=== PATIENT | male | born 1955 | race Caucasian/White ===

== ENCOUNTER 2023-05-27 07:14 | Outpatient (RCR) | payer MEDICARE, SELFPAY | END 2023-05-27 23:59 | disposition home or self-care (01) | LOC: RPT 07:14 | PROVIDERS: ATTENDING PHYSICIAN Orthopaedic Surgery; FAMILY PHYSICIAN Family Medicine | DX: M51.16 Intervertebral disc disorders with radiculopathy, lumbar region (principal); Z73.6 Limitation of activities due to disability; M79.605 Pain in left leg | CPT/HCPCS: 97110; 97162 ==

== ENCOUNTER 2023-06-25 08:59 | Outpatient (RCR) | payer MEDICARE, SELFPAY | END 2023-06-25 10:12 | disposition home or self-care (01) | LOC: RPT 08:59 | PROVIDERS: ATTENDING PHYSICIAN Orthopaedic Surgery; FAMILY PHYSICIAN Family Medicine | DX: M51.16 Intervertebral disc disorders with radiculopathy, lumbar region (principal); Z73.6 Limitation of activities due to disability | CPT/HCPCS: 97110 ==

== ENCOUNTER 2023-07-08 06:38 | Day surgery (SDC) | payer MEDICARE, SELFPAY ==
[2023-07-08 10:40] VITALS: BMI 24.2
[2023-07-08 10:50] VITALS: BP 159/88
[2023-07-08 11:06] VITALS: BMI 24.2
[2023-07-08 13:40] VITALS: BP 110/91
[2023-07-08 13:55] VITALS: BP 148/105
[2023-07-08 14:10] VITALS: BP 127/86
== END 2023-07-08 14:25 | disposition home or self-care (01) ==
LOC: GI 06:38
PROVIDERS: ATTENDING PHYSICIAN Internal Medicine Gastroenterology
DX: Z12.11 Encounter for screening for malignant neoplasm of colon (principal); K64.0 First degree hemorrhoids; K31.A0 Gastric intestinal metaplasia, unspecified; K31.7 Polyp of stomach and duodenum; K31.89 Other diseases of stomach and duodenum; Z86.010 Personal history of colon polyps; Z13.810 Encounter for screening for upper gastrointestinal disorder; Z98.890 Other specified postprocedural states
CPT/HCPCS: 45378; 43239; 88305

== ENCOUNTER → 2024-10-19 15:49 | Outpatient (REF) | payer MEDICARE, SELFPAY | LOC: HWRCS 15:49 | PROVIDERS: ATTENDING PHYSICIAN Nurse Practitioner; FAMILY PHYSICIAN Family Medicine | DX: R00.1 Bradycardia, unspecified (principal); R00.2 Palpitations; R06.09 Other forms of dyspnea; R07.89 Other chest pain | CPT/HCPCS: 93306 ==

== ENCOUNTER → 2024-10-22 10:32 | Outpatient (REF) | payer MEDICARE, SELFPAY | LOC: RCS 10:32 | PROVIDERS: ATTENDING PHYSICIAN Nurse Practitioner; FAMILY PHYSICIAN Family Medicine | DX: R06.09 Other forms of dyspnea (principal); R07.89 Other chest pain; R00.1 Bradycardia, unspecified; R00.2 Palpitations | CPT/HCPCS: 93017 ==

== ENCOUNTER → 2024-11-10 12:36 | Outpatient (REF) | payer MEDICARE, SELFPAY | LOC: HWRCS 12:36 | PROVIDERS: ATTENDING PHYSICIAN Nurse Practitioner; FAMILY PHYSICIAN Family Medicine | DX: R06.09 Other forms of dyspnea (principal); R07.89 Other chest pain | CPT/HCPCS: 78452; 93017; A9500; J2785 ==

== ENCOUNTER 2024-12-07 07:57 | Day surgery (SDC) | payer MEDICARE, SELFPAY ==
[2024-12-07] VITALS (14 sets, daily range): BP systolic 122–151; BP diastolic 63–130
[2024-12-07] MEDS: NSS 243 ML IV (08:35)
[2024-12-07 09:33] LABS: ACT-LR - POC 310 Seconds (116-155)
[2024-12-07 09:58] LABS: ACT-LR - POC 363 Seconds (116-155)
--- NOTE | 2024-12-07 10:34 | ITS.CL.PN ---
Engine Dispatcher - Procedure Note
Procedure
Procedure Note:
CARDIAC CATHETERIZATION REPORT
Date of Procedure: 12/07/2024
Referring: Dr. Aron Carter MD
Indication: Anginal chest pain and positive cardiac stress test despite maximally tolerated antianginal medication
PROCEDURE(S)
1. left heart catheterization
2. coronary angiography
3. IVUS LAD
4. PCI with ENEDINA to LAD
ACCESS: 6F right radial artery (closure: radial band)
CATHETERS
1. 6F JR4
2. 6F JL4
3. 6F EBU3.5 guide
MODERATE SEDATION: 45 minutes of moderate sedation was utilized. An independent medical device sales representative was present to assist with and help manage the patient's level of consciousness and physiologic status.
HEMODYNAMIC DATA
LV 129/3 (EDP 7) mmHg
AO 127/70 (mean 93) mmHg
CORONARY ANGIOGRAPHY
Dominance: Right
LM: large, normal
LAD: large vessel giving rise to a single very large diagonal with the continuation of the LAD suppling septals and becoming a diminutive vessel before reaching the apex. There is a focal 90% stenosis in the LAD ending just at the diagonal
bifurcation and otherwise trivial luminal irregularities only.
Ramus: large caliber vessel with trivial luminal irregularities only.
LCx: large vessel giving rise to a single branching marginal. There are trivial luminal irregularities only.
RCA: Large vessel giving rise to a large RPDA, large RPL1, and small RPL2. There are trivial luminal irregularities only.
PCI with ENEDINA to LAD
Additional heparin was administered to achieve ACT greater than 300. The left main was engaged with an EBU 3.5 guide catheter and a Runthrough coronary wire placed in the distal LAD. Initial lesion preparation was performed with a 2.0 mm
semicompliant balloon with full expansion. IVUS was performed demonstrating a 4.0 mm reference vessel diameter up with minimal calcification at the lesion. A 3.5 x 18 mm Kevin Randall drug-eluting stent was delivered and deployed at nominal pressure
followed by post dilation with a 4.0 mm NC balloon to 18 ashwin. Repeat IVUS demonstrated full stent expansion and apposition with no edge dissections. Final angiographic result was outstanding. The wire and guide were removed and a TR band placed. The
patient was loaded with 600 mg of Plavix.
RADIATION: dose 568 mGy; DAP 43 Gy*cm2; fluoroscopy time 8.1 min
CONCLUSIONS
1. Left heart cath with normal LV filling pressure and no aortic stenosis.
2. Coronary angiography with single vessel coronary artery disease as described with 90% prox LAD stenosis.
3. Successful IVUS-guided PCI to prox LAD with DESx1 (3.5x18 Kevin Randall post-dilated to high pressure with a 4.0 mm NC balloon).
RECOMMENDATIONS
1. Dual antiplatelet therapy with aspirin and Plavix for 6 months followed by indefinite aspirin monotherapy
2. Aggressive secondary prevention of coronary artery disease with goal LDL less than 55
Copy to: Dr. Aron Carter MD (forestry faculty member); Dr. Danilo Vargas DO (PCP)
Signed: Demetrius Gomez MD, PhD
[2024-12-07] MEDS: NSS 1000 IV (10:46)
--- NOTE | 2024-12-07 13:54 | W.PN.UPDATE ---
Update Note
Progress Note Update
Pt seen post LAD PCI w/1 ENEDINA. Left radial site without ht/bleeding. OOB ambulating. Post EKG SB 45, which is baseline, no acute changes. Pt understands importance of uninterrupted DAPT w/asa, plavix. Will continue other meds as before. Cardiac rehab
consulted. Followup at [facility] as scheduled. Home today if cath site/tele remain stable.
== END 2024-12-07 15:40 | disposition home or self-care (01) ==
LOC: CATH 07:57
PROVIDERS: ATTENDING PHYSICIAN Student in an Organized Health Care Education/Training Program; FAMILY PHYSICIAN Family Medicine
DX: I25.119 Atherosclerotic heart disease of native coronary artery with unspecified angina pectoris (principal); Z79.02 Long term (current) use of antithrombotics/antiplatelets; Z79.82 Long term (current) use of aspirin; I10 Essential (primary) hypertension
CPT/HCPCS: 92978; 99152; 99153; 85347; 93005; 93458; C1725; C1753; C1874; C1894; C9600; Q9967

== ENCOUNTER 2024-12-24 16:38 | Outpatient (RCR) | payer MEDICARE, SELFPAY | END 2024-12-24 23:59 | disposition home or self-care (01) | LOC: CRHB 16:38 | PROVIDERS: ATTENDING PHYSICIAN Internal Medicine Cardiovascular Disease; FAMILY PHYSICIAN Family Medicine | DX: I25.10 Atherosclerotic heart disease of native coronary artery without angina pectoris (principal); Z95.5 Presence of coronary angioplasty implant and graft | CPT/HCPCS: G0422; G0423 ==

== ENCOUNTER 2025-01-15 09:19 | Emergency (ER) | payer MEDICARE, SELFPAY ==
[2025-01-15 09:20] VITALS: BP 158/93
[2025-01-15 10:01] VITALS: BMI 25.6
[2025-01-15 10:23] LABS: Hematocrit 48.5 % (39.0-52.0); Hemoglobin 16.4 g/dL (13.0-18.0); Mean Corp Hgb Conc. 33.8 g/dL (33.0-37.0); Mean Corpuscular Volume 92.9 fL (80.0-94.0); Nucleated Red Blood Cells % 0 % (-); Platelet Count 186 10^3/uL (130-400); Red Cell Dist. Width 12.8 % (11.5-14.5)
[2025-01-15 10:29] LABS: INR 0.96; PT 13.1 Sec (11.4-14.6)
[2025-01-15 10:30] LABS: APTT 26.6 Sec (23.4-35.0)
[2025-01-15 10:37] LABS: ALT (SGPT) 45 U/L (0-50); AST (SGOT) 38 U/L (17-59); Albumin 4.2 g/dl (3.5-5.0); Alkaline Phosphatase 82 U/L (38-126); Blood Urea Nitrogen 23 mg/dl (9-20); Calcium 9.8 mg/dl (8.4-10.2); Carbon Dioxide 31 mmol/L (22-30); Chloride 106 mmol/L (98-107); Estimated Creatinine Clearance 71 ml/min; Glucose 106 mg/dl (70-99); Lipase 132 U/L (23-300); Potassium 4.5 mmol/L (3.5-5.1); Sodium 140 mmol/L (135-145); Total Protein 6.6 g/dl (6.3-8.2); eGFR > 60.00
[2025-01-15 10:56] VITALS: BP 123/73
[2025-01-15 11:00] VITALS: BP 136/75
[2025-01-15 13:02] VITALS: BP 128/57
--- NOTE | 2025-01-15 13:07 | ED.GENMED ---
History of Present Illness
General
Chief Complaint: Abnormal Lab Value
Time Seen by Provider: 01/15/25 09:34
History of Present Illness
History of Present Illness:
see MDM
Past History
Past History
ED Past Medical History: Cancer (prostate), HTN and Other (kidney stones, diverticulosis seen on colonoscopy)
ED Past Surgical History: Appendectomy, Cardiac (A stress echo test was done due to his risk factors and was normal.), Tonsilectomy, Urological (prostatectomy) and Other (Colonoscopy for colon cancer screening)
Social History
Tobacco: Non-smoker
Alcohol: Occasional
Personal:
Living: with family (significant other)
Employment: Employed
Phy Exam
Physical Exam
Physical Exam:
see MDM
Course
Orders/Labs/Results
Orders:
Orders
01/15/25 09:50
CT Abd/Pel (IV only)-DH only Urgent
Comment: tender RLQ
Reason For Exam: RUQ bruising, elevated LFTs/lipase per outpateitn
Complete Blood Count/With Diff Urgent
Comprehensive Metabolic Panel Urgent
Lipase Urgent
PTT Urgent
Prothrombin Time Urgent
Abnormal Lab Results
01/15/25
09:50
MCH 31.4 H pg
(27.0-31.0)
Absolute Monos (auto) 0.9 H 10^3/uL
(0.1-0.6)
Monocytes % 13.6 H %
(1.7-9.3)
Carbon Dioxide 31 H mmol/L
(22-30)
BUN 23 H mg/dl
(9-20)
Glucose 106 H mg/dl
(70-99)
Total Bilirubin 2.1 H mg/dl
(0.2-1.3)
01/15/25 09:50
01/15/25 09:50
Vital Signs
Initial and Last Documented VS:
Initial Vital Signs
Temp Pulse Resp BP Pulse Ox
36.6 C 49 16 158/93 100
01/15/25 09:20 01/15/25 09:20 01/15/25 09:20 01/15/25 09:20 01/15/25 09:20
Last Documented Vital Signs
Temp Pulse Resp BP Pulse Ox
36.6 C 49 16 128/57 98
01/15/25 09:20 01/15/25 09:20 01/15/25 09:20 01/15/25 13:02 01/15/25 13:09
MDM/Problems Addressed
Differential Diagnosis Includes:
see MDM
MDM/Problems Addressed:
Note:
CHIEF COMPLAINT(S)
Elevated liver enzymes and spontaneous bruising.
HISTORY OF PRESENT ILLNESS
The patient is a 70-year-old male with a history of cad with stenting 11/2024, here for concern for abnormal blood work. He presents with concerns of spontaneous bruising and elevated liver enzymes identified in recent blood tests conducted by his
primary care provider. The patient was noted to have elevated alanine aminotransferase (ALT) of 70s and aspartate aminotransferase (AST) of 50s last week. There is also a new onset of slight jabs of abdominal pain in the right upper quadrant
beginning approximately one week ago, described as 'not significant,' without associated vomiting, nausea, fever, or chills. Patient is on aspirin and Plavix and says he noticed a bruise in his right upper abdomen about 10 days ago. Not prompted
the initial evaluation with labs from his site superintendent who noticed that the LFTs were minimally bumped. Patient then saw his family doctor who sent him for labs 2 days ago and he got a phone call today saying that something was concerning for
pancreatitis. The patient denies any history of pancreatitis but acknowledges lower back pain, which he attributes to a muscular cause. He takes Eliquis and Coumadin, among others not specified, for his cardiac condition. Recent labs suggested the
possibility of pancreatitis, potentially related to the blood thinning medication. As a precautionary measure, a computed tomography (CT) scan has been recommended.
SOCIAL HISTORY
The patient reports no history of smoking. There was no mention of alcohol or substance use.
MEDICATIONS
- Blood thinners: Eliquis, Coumadin
PHYSICAL EXAM
GENERAL: Alert , in no apparent distress
EYE: pupils equal and reactive
NECK: Supple
ENT: o/p clr, mmm.
CARDIAC: Regular rate and rhythm .
LUNGS: Clear breath sounds bilaterally, no acute respiratory distress, no wheezes/rales/rhonchi
ABDOMEN: Soft, right sided upper abdomen bruising that is yellowish/white-purple without significant tenderness no appreciated hepatomegaly, no r/g, no cvat, normal bowel sounds
NEUROLOGICAL: Alert and oriented, no focal neuro deficits
SKIN: Warm and dry, skin intact.
MUSCULOSKELETAL: No edema, well perfused. neg alex's sign
PSYCH: Normal and appropriate interaction.
ed in the abdomen, particularly in the area of concern
- Patient reports cold hands
- Nursing notes reviewed and vital signs reviewed.
PROBLEM LIST
Acute Problems:
- Elevated liver enzymes
- Spontaneous bruising
- Suspected mild abdominal pain
Chronic Problems:
- History of cardiac events with stent placement, managed with blood thinners.
PLAN
- Conduct a CT scan of the abdomen to assess for pancreatitis and other potential causes of abdominal pain and elevated liver enzymes.
- Evaluate further laboratory results to reassess elevated liver enzymes and rule out significant liver or pancreatic dysfunction.
- Monitor for changes in symptoms, particularly any increase in abdominal pain, unexplained weight loss, or additional bruising.
DIFFERENTIAL DIAGNOSIS
The Differential Diagnosis includes, in no particular order and is not limited to:
- Drug-induced liver injury
- Pancreatitis
- Hepatitis (viral or toxic)
- Cholecystitis
- Gastrointestinal bleeding
- Alcohol-related liver disease
- Non-alcoholic fatty liver disease
- Gallstones
- Thrombocytopenia
- Viral infection affecting liver enzymes
CARE-UPDATE
01/15/25 - 12:43
Patient is now able to eat without issues. Liver enzymes have normalized and are within the normal range. The pancreatic enzyme, lipase, is also normal. Imaging revealed a large, simple cyst on the left kidney, which pt was aware of not causing
concern and no evidence of pancreatic or peripancreatic inflammation. The gallbladder shows no signs of distention or stones, and the liver appears normal. Bruising noted possibly due to aspirin and Plavix, which patient is on for cardiac
protection, but no active bleeding or trauma is evident. The previous elevated liver enzymes were likely due to transient causes such as viral illness, fatty foods, or recent high Tylenol intake, though overdosing is not suspected. No additional
testing for gallbladder stones with ultrasound is deemed necessary at this time. Emphasis is placed on maintaining a balanced diet, avoiding excessive Tylenol, and monitoring alcohol intake to keep liver markers stable. Despite earlier concerns from
another physician, all current tests and assessments indicate normalcy.
*Pulse Oximetry
SaO2: 98
Oxygen Mode of Delivery: Room air
Patient hypoxic: no (98)
*Critical Care Note
Total Time (30-74mins, 75-104mins- exclusive of procedures): Not Applicable
ED Attending Note
-
Portions of this chart may have been created with voice recognition software.� Occasional wrong word or��sound alike� substitutions may have occurred due to the inherent limitations of voice recognition software.
Discharge Plan
Departure
Patient Disposition: Home (Routine Discharge)
Date of Disposition: 01/15/25
Time of Disposition: 12:48
Patient with high blood pressure during this ER visit?: No
Condition: Fair
Covid-19: Not Applicable
Discharge Problem:
Superficial bruising of abdominal wall
Instructions: Minor contusion - ED (DC)
Prescriptions:
No Action
atorvastatin 40 mg Tablet
40 mg PO DAILY
amlodipine 5 mg Tablet
5 mg PO DAILY
aspirin 81 mg Tablet
81 mg PO DAILY
losartan 100 mg Tablet
100 mg PO DAILY
clopidogrel 75 mg tablet
75 mg PO DAILY Qty: 90 3RF
Referrals:
Danilo Vargas DO [Family Provider, Family Practice]
Activity Restrictions/Additional Instructions:
Were not sure exactly the cause of your abdominal wall bruising however your liver markers just show that your bilirubin is mildly elevated which is a chronic finding for you. Your LFTs, the AST and ALT were normal and your lipase was also normal.
Your CAT scan did not show any findings associated with your pancreas or gallbladder. You do have a large left kidney cyst which is something you are already aware of. It is very common to have bruising from aspirin and Plavix. Follow-up with
your family doctor, return for problems
It is possible that you could have had a gallstone that passed but there were no gallstones visible today
Interventions
Interventions:
*Risk Screen - Suicide Last Done: 01/15/25 09:20
*General Assessment Last Done: 01/15/25 10:51
*Neglect/Abuse Screening Last Done: 01/15/25 09:20
*ED- Fall Risk Assessment Last Done: 01/15/25 10:51
*ED COVID-19 Vaccine History Last Done: 01/15/25 10:51
*ED Influenza Vaccine History Last Done: 01/15/25 10:51
*Nursing Disposition Last Done: 01/15/25 13:21
Discharge Date and Time
Discharge Date/Time: 01/15/25 13:21
Print Language: JAPANESE
== END 2025-01-15 13:21 | disposition home or self-care (01) ==
LOC: EMR 09:19
PROVIDERS: Physician Assistant; EMERGENCY PHYSICIAN Emergency Medicine; FAMILY PHYSICIAN Family Medicine
DX: S30.11XA Contusion of abdominal wall, initial encounter (principal); X58.XXXA Exposure to other specified factors, initial encounter; N28.1 Cyst of kidney, acquired; I25.10 Atherosclerotic heart disease of native coronary artery without angina pectoris; I10 Essential (primary) hypertension; Z79.02 Long term (current) use of antithrombotics/antiplatelets; Z79.82 Long term (current) use of aspirin; Z79.01 Long term (current) use of anticoagulants; Z95.5 Presence of coronary angioplasty implant and graft
CPT/HCPCS: 99284; 74177; 80053; 83690; 85025; 85610; 85730; Q9967

== ENCOUNTER 2025-01-28 16:12 | Outpatient (RCR) | payer MEDICARE, SELFPAY | END 2025-01-28 23:59 | disposition home or self-care (01) | LOC: CRHB 16:12 | PROVIDERS: ATTENDING PHYSICIAN Internal Medicine Cardiovascular Disease; FAMILY PHYSICIAN Family Medicine | DX: I25.10 Atherosclerotic heart disease of native coronary artery without angina pectoris (principal); Z95.5 Presence of coronary angioplasty implant and graft | CPT/HCPCS: G0422; G0423 ==

== ENCOUNTER 2025-02-25 15:25 | Outpatient (RCR) | payer MEDICARE, SELFPAY | END 2025-02-25 23:59 | disposition home or self-care (01) | LOC: CRHB 15:25 | PROVIDERS: ATTENDING PHYSICIAN Internal Medicine Cardiovascular Disease; FAMILY PHYSICIAN Family Medicine | DX: I25.10 Atherosclerotic heart disease of native coronary artery without angina pectoris (principal); Z95.5 Presence of coronary angioplasty implant and graft | CPT/HCPCS: G0422; G0423 ==

== ENCOUNTER 2025-03-21 15:21 | Outpatient (RCR) | payer MEDICARE, SELFPAY | END 2025-03-21 16:19 | disposition home or self-care (01) | LOC: CRHB 15:21 | PROVIDERS: ATTENDING PHYSICIAN Internal Medicine Cardiovascular Disease; FAMILY PHYSICIAN Family Medicine | DX: I25.10 Atherosclerotic heart disease of native coronary artery without angina pectoris (principal); Z95.5 Presence of coronary angioplasty implant and graft | CPT/HCPCS: G0422; G0423 ==